=== PATIENT | male | born 1985 | race Caucasian/White ===

== ENCOUNTER 2016-09-20 16:00 | Inpatient (IN) | payer MEDICAID ==
--- NOTE | 2016-09-20 16:07 | EDPHY ---
H & P Source: Patient, Family, EMS HPI/ROS: CHIEF COMPLAINT: Fall, abnormal behavior. HISTORY OF PRESENT ILLNESS: This patient is a 31 year old male arriving via EMS following a fall and possible psychiatric episode. Per EMS crews, he was found at [facility], [place], covered in dirt and multiple abrasions, and running after people, behaving inappropriately. He states he left home yesterday, and initially states that he was staying at a friend's house, but later says he slept in his car. He states he was hiking "around 11 this morning" and fell 6-10 feet while crossing a boulder field. He does not know what may have happened to his clothing. He is oriented to person and place, but not time. He is concerned about hearing from [employer] regarding a potential job offer. He denies hearing voices or having visions. He denies suicidal or homicidal ideation. He feels he is dehydrated and states he has not been sleeping well. See [facility] for additional historical information. REVIEW OF SYSTEMS: A 10 point review of systems was performed and is negative with the exception of the elements mentioned in the history of present illness. (Melina Henry) - Medical/Surgical History PMH: Patient denies past medical history. His mother tells me that he has a history of a previous psychiatric hospitalization about 3 years ago. (Melina Henry) - Social History Additional Social History: Lives with his mother. (Melina Henry) - Physical Exam Exam: General Appearance: Alert, no acute distress. Initial blood pressure 158/100, heart rate 115 at triage. Cervical collar in place at arrival. Head: Normocephalic, small swelling with overlying abrasion anterior frontal scalp. No palpable skull deformity. Eyes: Pupils equal and round, [place] NENA. no conjunctival injection, no discharge. ENT, Mouth: Mucous membranes are dry, no oropharyngeal erythema or edema. Neck: No lymphadenopathy, supple. Respiratory: Lungs are clear to auscultation; no wheezes, rales, or rhonchi. Cardiovascular: Regular rate and rhythm; no murmur, rub, or gallop. Gastrointestinal: Abdomen is soft and non tender, no masses or organomegaly, bowel sounds normal. Bilateral abrasions at the level of the umbilicus. Skin: Warm and dry, no rashes, normal color. Back: Nontender to palpation over the thoracolumbar spine. Extremities: No lower extremity edema, no calf tenderness or swelling. Linear abrasion posterior right arm. Abrasion over left hip. Abrasion on the posterior right shoulder. Scattered abrasions over legs and feet. Neurological: Alert and oriented. Moving all four extremities easily and equally. Psychiatric: Somewhat pressured speech. (Melina Henry) Constitutional: Initial Vital Signs Temperature (C) 37.1 C 09/20/16 16:07 Heart Rate 115 H 09/20/16 16:07 Respiratory Rate 14 09/20/16 16:07 Blood Pressure 158/100 H 09/20/16 16:07 O2 Delivery Mode Room Air Allergies/Adverse Reactions: No Known Allergies Allergy (Unverified 09/20/16 17:32) Medical Decision Making - Diagnostics Imaging: Discussed imaging studies w/ will call clerk Radiologist - Diagnostics Imaging Results: Head CT reviewed by me in PACs. No acute findings. I discussed the study with the radiologist on duty. Cervical spine CT shows a central disc herniation at C4-5. No acute fracture or other acute abnormalities noted. Discussed with radiologist on duty. Right forearm x-ray negative for fracture. I reviewed this x-ray in PACs. ( Melina Henry) ED Course/Re-evaluation: 6:00 a.m.- The patient has been stable during my shift. Labs have been checked and he does have an elevated CK level. However, I doubt he is in rhabdomyolysis. He feels well, denies any muscle pains, aches, weakness. He is able to drink fluids without any difficulty. His creatinine has decreased from 2.1-1.4. He is medically clear. He is currently being evaluated by psychiatry. His disposition is pending their evaluation. At 7:00 a.m. I anticipate the case will be signed out [facility]. (Chapis Gaming) 16:[address] Mckenzie, radiologist. CT head negative for acute processes. 17:00 Reassessed. Mother and stepfather at bedside. His mother reports he has a history of schizoaffective disorder, and had been missing since yesterday around 4:30 p.m.. Yesterday, he became very irrational and argumentative, pacing around and stating he had not been able to sleep since Saturday. He was hospitalized 3.5 years ago in [place] for what is mother describes as a delusional episode following several days without eating or sleeping while studying at [employer]. At that time, he became suicidal and broke his glasses in an attempt to slit his wrists. He was medicated at that time, and his symptoms resolved. He was discharged on Seroquel, which he took for only a short time. He has not been taking any medications or seeing a psychiatrist since then, and has had no further episodes. The patient states he felt the medication had a negative effect on him overall, and he did not wish to continue them. 17:05 Reexamined neck, removed c-collar. Re-examined abdomen. Soft and nontender. 17:20 Patient placed on M1 hold. 17:44 Forearm x-ray negative for fracture. 19:37 Patient became very agitated and combative, and attempted to run from the facility. He was restrained by guards, and continued to scream obscenities and fight, stating " get off me now or else, remember last time?". He stated he wanted to negotiate, but only outside. He continued to yell at staff, saying "they stole your brain", and "I want to help you." Administered 10mg Haldol and 2mg Ativan. 19:40 Patient returned to his room and placed in restraints. 1941 I spoke with the patient's mother, apprised her of the fact that he had been sedated. She understands that this will delay his mental health evaluation. 2024 Restraints removed. 2300 Patient has been sleeping. Midnight: care will be transferred to Dr. Gaming. It is my impression that this patient's presentation is most consistent with a psychotic break. Given his previous psychiatric hospitalization, I think that this impression is most likely explanation for his abnormal behavior. Drug screen is positive only for marijuana. He has no known history of substance abuse. He is not intoxicated. No electrolyte or blood sugar abnormalities sufficient to explain his abnormal behavior. I have not found evidence of infection. I have not found evidence of traumatic injury sufficient to cause an altered mental status or delirium. His head CT is normal. He was not hyperthermic at the time of his arrival in the emergency department. He does have elevated creatinine kinase, at over 1000. Kidney function abnormal with a creatinine of 2.1 on arrival. I suspect dehydration and rhabdomyolysis. He received 2 L of normal saline intravenously during his initial stay in the emergency department. A third L was planned, but this plan was aborted when the patient became combative and pulled his IV out. He was then sedated, as above. He will need to have labs repeated. (Melina Henry) Differential Diagnosis: I considered a differential diagnosis of Altered mental status including but not limited to psychiatric illness with psychosis/paranoia/steffany/hallucinations , hypoglycemia, infectious process, electrolyte abnormality, head injury and intoxicants. (Melina Henry) Other Provider: I assumed care of the patient at 0700. The patient continued to escalate in the emergency department. He received a dose of Zyprexa. At this point time with the patient's rhabdomyolysis he is not medically cleared for placement into a crisis stabilization unit. He will require admission to the hospital for stabilization of his rhabdomyolysis. Consultation is made with the hospitalist service at 11:20 a.m.. The patient received an additional 1 L of normal saline. (Jacek Hazel) - Data Points Laboratory Results: Laboratory Results 09/21/16 04:05 09/20/16 20:55 09/21/16 09/21/16 04:05 04:05 WBC 15.97 10^3/uL H 10^3/uL (3.80-9.50) RBC 4.43 10^6/uL 10^6/uL (4.40-6.38) Hgb 13.5 g/dL L g/dL (13.7-17.5) Hct 40.6 % % (40.0-51.0) MCV 91.6 fL fL (81.5-99.8) MCH 30.5 pg pg (27.9-34.1) MCHC 33.3 g/dL g/dL (32.4-36.7) RDW 13.1 % % (11.5-15.2) Plt Count 188 10^3/uL 10^3/uL (150-400) MPV 9.7 fL fL (8.7-11.7) Neut % (Auto) 76.8 % H % (39.3-74.2) Lymph % (Auto) 13.0 % L % (15.0-45.0) Dent % (Auto) 9.1 % % (4.5-13.0) Eos % (Auto) 0.1 % L % (0.6-7.6) Baso % (Auto) 0.3 % % (0.3-1.7) Nucleat RBC Rel Count 0.0 % % (0.0-0.2) Absolute Neuts (auto) 12.27 10^3/uL H 10^3/uL (1.70-6.50) Absolute Lymphs (auto) 2.08 10^3/uL 10^3/uL (1.00-3.00) Absolute Monos (auto) 1.46 10^3/uL H 10^3/uL (0.30-0.80) Absolute Eos (auto) 0.01 10^3/uL L 10^3/uL (0.03-0.40) Absolute Basos (auto) 0.04 10^3/uL 10^3/uL (0.02-0.10) Absolute Nucleated RBC 0.00 10^3/uL 10^3/uL (0-0.01) Immature Gran % 0.7 % % (0.0-1.1) Immature Gran # 0.11 10^3/uL H 10^3/uL (0.00-0.10) Creatine Kinase 4599 IU/L H IU/L (0-224) CK-MB (CK-2) Fraction 4.12 ng/mL H ng/mL (0-3.19) CK-MB (CK-2) % 0.1 % % (0.0-4.0) Creatine Kinase Interp NEGATIVE (NEGATIVE) Medications Given: Discontinued Medications Haloperidol Lactate (Haldol Injection) 10 mg IM EDNOW ONE Stop: 09/20/16 19:41 Last Admin: 09/20/16 19:40 Dose: 10 mg Sodium Chloride (Ns) 1,000 mls @ 0 mls/hr IV EDNOW ONE; Wide Open PRN Reason: Protocol Stop: 09/20/16 16:41 Last Admin: 09/20/16 16:45 Dose: 1,000 mls Sodium Chloride (Ns) 1,000 mls @ 0 mls/hr IV ONCE ONE PRN Reason: Wide Open Stop: 09/20/16 17:01 Last Admin: 09/20/16 17:00 Dose: 1,000 mls Sodium Chloride (Ns) 1,000 mls @ 0 mls/hr IV ONCE ONE; Wide Open PRN Reason: Protocol Stop: 09/20/16 20:02 Last Admin: 09/20/16 20:00 Dose: 1,000 mls Sodium Chloride (Ns) 1,000 mls @ 0 mls/hr IV EDNOW ONE; Wide Open PRN Reason: Protocol Stop: 09/21/16 11:08 Last Admin: 09/21/16 11:13 Dose: 1,000 mls Lorazepam (Ativan Injection) 2 mg IM EDNOW ONE Stop: 09/20/16 20:04 Last Admin: 09/20/16 19:40 Dose: 2 mg Olanzapine (Olanzapine) 10 mg PO ONCE ONE Stop: 09/21/16 10:20 Last Admin: 09/21/16 10:41 Dose: 10 mg Departure - [facility] Clinical Impression: Psychosis, Rhabdomyolysis Condition: Fair Referrals: Patient,NotPresent [Unknown] - As per Instructions Report Scribed for: Melina Henry Report Scribed by: Suzan Moya Date of Report: 09/20/16 Time of Report: 17:24 Physician Review and Approval Statement: 09/21/16 09:02 Portions of this note were transcribed by the medical receptionist medical assistant. I, Dr. Melina Henry, personally performed the history, physical exam, and medical decision- making; and confirmed the accuracy of the information in the transcribed note. ( Melina Henry)
[2016-09-20 16:16] LABS: % IMMATURE GRANULYOCYTES 0.8 % (0.0-1.1); ABSOLUTE IMMATURE GRANULOCYTES 0.17 10^3/uL (0.00-0.10); ADD DIFF? NO; ADD MORPH? NO; ADD SCAN? NO; ATYPICAL LYMPHOCYTE FLAG 0 (0-99); FRAGMENT RBC FLAG 0 (0-99); HEMATOCRIT 45.5 % (40.0-51.0); HEMOGLOBIN 15.4 g/dL (13.7-17.5); LEFT SHIFT FLG 20 (0-99); LIPEMIA HEMOLYSIS FLAG 90 (0-99); MEAN CELL HEMOGLOBIN CONCENTR. 33.8 g/dL (32.4-36.7); MEAN CELL VOLUME 91.7 fL (81.5-99.8); MEAN PLATELET VOLUME 10.1 fL (8.7-11.7); PLATELET CLUMPS FLAG 20 (0-99); PLATELET COUNT 219 10^3/uL (150-400); RED BLOOD CELL COUNT 4.96 10^6/uL (4.40-6.38); RED CELL DISTRIBUTION WIDTH 13.1 % (11.5-15.2)
[2016-09-20 16:32] LABS: ANION GAP 21 mEq/L (8-16); CALCIUM 9.8 mg/dL (8.5-10.4); CARBON DIOXIDE 15 mEq/l (22-31); CHLORIDE 108 mEq/L (97-110); CREATININE 2.1 mg/dL (0.7-1.3); ETHANOL SERUM < 10 mg/dL (0-10); GLOMERULAR FILTRATION RATE 38; GLUCOSE 140 mg/dL (70-100); POTASSIUM 4.5 mEq/L (3.5-5.2); SODIUM 144 mEq/L (134-144)
[2016-09-20] MEDS ORDERED: NS 1,000 ML IV ONE ×3 (16:40→20:01)
[2016-09-20 18:47] LABS: CK-MB INTERPRETATION NEGATIVE (NEGATIVE)
[2016-09-20 18:49] LABS: CREATINE KINASE-MB FRACTION 3.69 ng/mL (0-3.19)
[2016-09-20] MEDS ORDERED: LORazepam 2 MG/ML INJ ONE (19:36)
[2016-09-20] MEDS ORDERED: HALOPERIDOL LACT 5 MG/ML INJ ONE (19:37)
[2016-09-20] MEDS ORDERED: HALOPERIDOL LACT 5 MG/ML INJ IM ONE (19:40)
[2016-09-20] MEDS ORDERED: LORazepam 2 MG/ML INJ IM ONE (20:03)
[2016-09-20 21:15] LABS: ANION GAP 14 mEq/L (8-16); CALCIUM 8.3 mg/dL (8.5-10.4); CARBON DIOXIDE 16 mEq/l (22-31); CHLORIDE 107 mEq/L (97-110); CREATININE 1.4 mg/dL (0.7-1.3); GLOMERULAR FILTRATION RATE 60; GLUCOSE 104 mg/dL (70-100); POTASSIUM 4.1 mEq/L (3.5-5.2); SODIUM 137 mEq/L (134-144)
[2016-09-21 04:15] LABS: % IMMATURE GRANULYOCYTES 0.7 % (0.0-1.1); ABSOLUTE IMMATURE GRANULOCYTES 0.11 10^3/uL (0.00-0.10); ADD DIFF? NO; ADD MORPH? NO; ADD SCAN? NO; ATYPICAL LYMPHOCYTE FLAG 0 (0-99); FRAGMENT RBC FLAG 0 (0-99); HEMATOCRIT 40.6 % (40.0-51.0); HEMOGLOBIN 13.5 g/dL (13.7-17.5); LEFT SHIFT FLG 10 (0-99); LIPEMIA HEMOLYSIS FLAG 80 (0-99); MEAN CELL HEMOGLOBIN 30.5 pg (27.9-34.1); MEAN CELL HEMOGLOBIN CONCENTR. 33.3 g/dL (32.4-36.7); MEAN CELL VOLUME 91.6 fL (81.5-99.8); MEAN PLATELET VOLUME 9.7 fL (8.7-11.7); PLATELET CLUMPS FLAG 0 (0-99); PLATELET COUNT 188 10^3/uL (150-400); RED BLOOD CELL COUNT 4.43 10^6/uL (4.40-6.38); RED CELL DISTRIBUTION WIDTH 13.1 % (11.5-15.2)
[2016-09-21 05:03] LABS: CK-MB INTERPRETATION NEGATIVE (NEGATIVE)
[2016-09-21 05:04] LABS: CREATINE KINASE-MB FRACTION 4.12 ng/mL (0-3.19)
[2016-09-21] MEDS ORDERED: OLANZapine 10 MG TAB PO ONE (10:19)
[2016-09-21] MEDS ORDERED: NS 1,000 ML IV ONE (11:07)
[2016-09-21] MEDS ORDERED: ACETAMINOPHEN 325 MG TAB PO PRN (11:49)
[2016-09-21] MEDS ORDERED: ONDANSETRON 4 MG/2 ML VIAL IVP PRN (11:49)
[2016-09-21] MEDS ORDERED: ONDANSETRON DISINTEGRATING 4 MG TAB PO PRN (11:49)
--- NOTE | 2016-09-21 15:10 | GHP ---
[f rep st] HISTORY AND PHYSICAL DATE OF ADMISSION: 09/21/2016 CHIEF COMPLAINT: Unusual behavior. HISTORY OF PRESENT ILLNESS: A 31-year-old male who was found hiking naked around [place], inappr opriately approaching strangers with strange comments and bizarre suggestions. Patient was covered in dirt. Police were called, and he was brought to the emergency department for evaluation. In the ED, his mother was present and able to answer questions about recent time. Reports he was in his n ormal state of health approximately a week ago when his behavior became more confrontational daily i n the past week. She had not noticed any aggressive behavior from him. Denied any reported physica l complaints from him. He had been eating and drinking normally. The patient denies any chest pain , shortness of breath, and abdominal discomfort. Denies diarrhea, dysuria, rashes, and subjective f angeli or chills. Patient became very aggressive in the emergency department and was physically rest rained by police officers and placed on M1 hold. PAST MEDICAL HISTORY: Psychiatric illness; no specific diagnosis provided. SOCIAL HISTORY: Daily alcohol use/abuse. Daily marijuana use. No tobacco or illicit drugs. FAMILY HISTORY: Negative for any known psychiatric illness. Depression in his father who is now tr ansgender. REVIEW OF SYSTEMS: A 10-point review of systems is negative with the exception of that reported in the HPI. PHYSICAL EXAMINATION: VITAL SIGNS: Blood pressure 147/96, heart rate 100, respiratory rate 16, 98% on room air of 36 4. GENERAL: This is a disheveled-appearing, young male in mild distress. HEENT : Notable for dry mucous membranes. Eye exam is negative for any icterus. CARDIAC: Patient is ta chycardic but regular. PULMONARY: Good respiratory effort. Clear to auscultation bilaterally. GAS TROINTESTINAL: Positive bowel sounds. Abdomen is soft and nontender. MUSCULOSKELETAL: Negative f or any lower extremity edema. SKIN: Negative for any rashes. NEUROLOGIC: Patient is alert and diso riented. PSYCHIATRIC: Aggressive and agitated. DATA: White count is 15.9, hematocrit 40.6, platelets of 188. Sodium 137, creatinine 2.1 to 1.4. CK of 1000 up to 4600. Urine tox is positive for marijuana. CT of the head, which I personally rev iewed and interpreted, shows no acute trauma or bleeds. ASSESSMENT AND PLAN: This is a 31-year-old male with acute psychosis. 1. Acute kidney injury: Presumed secondary to hypovolemia and dehydration. The patient had not be en seen by his mother for a couple days prior to being found on [place]. Has had some improvemen t in his renal function with fluid resuscitation alone, but will continue aggressive IV fluid replet ion, following urine outputs and creatinines. 2. Acute psychosis: Patient apparently had a similar episode, though less extreme, approximately 3 years ago. Was not given a specific diagnosis at the time or initiated on any pharmacotherapy. Pe r the mother's report, with whom he lives, has been stable in the interim. She reports that they we nt and saw Hair at the dinner theater in [place], and since seeing that he has been acting strangely, including acting out scenes from the play. Patient was evaluated by EPS. Will use Haldol and Ativ an as needed for agitation and acute psychosis. The intention will be to transfer to inpatient 3 No rth when the patient is medically clear. 3. Prophylaxis: With Lovenox. DIET: Regular. DISPOSITION: I expect in less than 2 midnights if patient responds appropriately to fluid resuscita tion. I have discussed the case with the emergency room physician. Patient will be triaged to the ICU on an M1 hold. /[id number]/MODL
[2016-09-21 16:43] LABS: ANION GAP 12 mEq/L (8-16); CALCIUM 8.5 mg/dL (8.5-10.4); CARBON DIOXIDE 17 mEq/l (22-31); CHLORIDE 109 mEq/L (97-110); CREATININE 0.7 mg/dL (0.7-1.3); GLOMERULAR FILTRATION RATE > 60; GLUCOSE 66 mg/dL (70-100); POTASSIUM 3.9 mEq/L (3.5-5.2); SODIUM 138 mEq/L (134-144)
[2016-09-21] MEDS ORDERED: HALOPERIDOL LACT 5 MG/ML INJ IVP PRN (19:27)
[2016-09-21] MEDS ORDERED: OLANZapine DISINTEGR 5 MG TAB PO PRN (19:28)
[2016-09-21 19:40] LABS: CREATINE KINASE-MB FRACTION 3.33 ng/mL (0-3.19)
[2016-09-21] MEDS: NS 1,000 ML IV SCH (20:12)
[2016-09-21 20:48] LABS: CK-MB INTERPRETATION NEGATIVE (NEGATIVE)
[2016-09-22 04:08] VITALS: TEMP 98.2
[2016-09-22] MEDS: NS 1,000 ML IV SCH (04:08)
[2016-09-22 07:57] VITALS: RESP 14
[2016-09-22] MEDS ORDERED: ENOXAPARIN 40 MG/0.4 ML SYR SC SCH (09:00)
[2016-09-22 21:10] VITALS: BP 138/76; PULSE 96; O2SAT 96
--- NOTE | 2016-09-23 11:40 | GDS ---
[f rep st] DISCHARGE SUMMARY DISCHARGE DIAGNOSES: 1. Acute psychosis, suspected schizophrenia. 2. Acute kidney injury secondary to hypovolemia. 3. Polysubstance abuse. HISTORY OF PRESENT ILLNESS: A 31-year-old male who was [place] approaching strangers with strange comments and suggestions. For details of the patient's initial presentation, please see the history and physical dated 017. CONSULTATIVE SERVICES: Psychiatry. PROCEDURES: On 09/20/2016, the patient had a noncontrast CT of the head, which was normal. HOSPITAL COURSE BY ISSUE: 1. Acute psychosis. The patient was combative, unsafe to himself and others at presentation in the ED. He was placed on an M1 hold, treated with Haldol and Ativan, and [facility]. 2. Acute kidney injury presumed secondary to hypovolemia and dehydration. The patient was aggressi vely fluid resuscitated and had resolution of his kidney injury from a creatinine of 2.1-0.7 on the day of disposition. 3. Polysubstance abuse. The patient drinks alcohol heavily and consumes high levels of marijuana. This will additionally be addressed by his psychiatric care team going forward. MEDICATIONS AT THE TIME OF DISPOSITION: Please reference the med rec printed on 09/22/2016. FOLLOWUP APPOINTMENTS: The patient will be admitted directly for inpatient psychiatric care at [address] [place] [address]. PENDING STUDIES: None. TIME SPENT: I spent greater than 30 minutes in the coordination of this discharge with the intensiv e care unit and psychiatric care providers. /[id number]/MODL
== END 2016-09-22 23:31 | DRG 885 ==
LOC: EEVIPCON 09-21 11:23 → OBSVTOIN 09-21 11:49 → F2N 09-21 12:52
PROVIDERS: ADMIT Hospitalist; ATTEND Hospitalist
DX: F20.9 Schizophrenia, unspecified (principal); N17.9 Acute kidney failure, unspecified; E86.1 Hypovolemia; F12.10 Cannabis abuse, uncomplicated; F10.10 Alcohol abuse, uncomplicated; E86.0 Dehydration; W19.XXXA Unspecified fall, initial encounter; Y93.01 Activity, walking, marching and hiking
CPT/HCPCS: 80305; G0480; J2060

== ENCOUNTER 2016-09-22 23:49 | Inpatient (IN) | payer MEDICAID ==
[2016-09-23] MEDS ORDERED: OLANZapine DISINTEGR 5 MG TAB PO PRN (00:13)
[2016-09-23] MEDS ORDERED: NICOTINE POLACRILEX 2 MG GUM B PRN (00:14)
[2016-09-23] MEDS ORDERED: MAGNESIUM HYDROXIDE 30 ML UDCUP PO PRN (00:14)
[2016-09-23] MEDS ORDERED: ACETAMINOPHEN 325 MG TAB PO PRN (00:14)
[2016-09-23] MEDS ORDERED: MAG HYDROX/AL HYDROX/SIMETH 30 ML UDCUP PO PRN (00:14)
[2016-09-23] MEDS: LORazepam 0.5 MG TAB PO PRN (01:36)
--- NOTE | 2016-09-23 15:10 | BCON ---
[f rep st] BEHAVIORAL [facility] CONSULTATION INTERNAL MEDICINE CONSULTATION. DATE OF CONSULTATION: 09/23/2016 REFERRING PHYSICIAN: Javy Kilgore MD REASON FOR REFERRAL: Medical clearance for inpatient [facility] stay. HISTORY OF PRESENT ILLNESS: The patient was admitted to the [facility] Emergency Department on 09/21/2016. He had been found by police wandering naked [place] [facility] covered in dirt and scrapes. He was brought to the emergency department and was hospitalized with altered mental status as well as acute renal insufficiency and rhabdomyolysis. He was hydrated. His renal function returned to normal. His CPK, indicating rhabdomyolysis, peaked and then began to come down and he was stable for transfer to inpatient [facility] for further psychiatric care. He is currently without any acute complaints. He reports that he had a good night sleep last night and he feels that his mind is much clearer. PAST MEDICAL HISTORY: He denies a history of any medical illnesses. He had a prior psychiatric hospitalization approximately 3-1/2 years ago in similar circumstances, but has not had continued psychiatric care. PAST SURGICAL HISTORY: He had a right ankle fracture with an ORIF when he was 20. MEDICATIONS: He was on no medications prior to admission. ALLERGIES: allergic to Sulfa drugs. SOCIAL HISTORY: He lives with his mother at present. 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 He does not smoke tobacco. He is a regular alcohol user and a regular marijuana user. FAMILY HISTORY: Noncontributory. REVIEW OF SYSTEMS: He reports that he abruptly ceased drinking alcohol several days before recent events. He currently denies pain, cough, dyspnea, chest pain , palpitations, nausea, vomiting, constipation, or diarrhea. He reports no change in his bowel habits. He reports no recent weight change, though he has adopted a vegetarian diet for several weeks. He denies sweats or chills. He denies a tremor and otherwise a 10-point review of systems is negative. PHYSICAL EXAMINATION: VITAL SIGNS: Blood pressure is 112/62, heart rate is 70 , respiratory rate is 14, oxygen saturation is 96% on room air. Temperature is 36.7 degrees centigrade. His weight is 90.3 kg for a body mass index of 27.8. GENERAL: This is an overweight man, appears his chronologic age, cooperative, and in no acute distress. HEENT: Extraocular movements are intact. Pupils are equal, round, and reactive to light. Mucous membranes are moist. Dentition is in good condition. He has an uncrowded airway, Mallampati class 1. NECK: Supple. HEART: There is a regular rate and rhythm with no murmurs, rubs, or gallops. LUNGS: Clear to auscultation bilaterally. ABDOMEN: Soft, nontender, nondistended with normoactive bowel sounds. EXTREMITIES: There is no cyanosis , clubbing, or edema. NEUROLOGIC: He is alert and oriented x3. Cranial nerves 2 through 12 are grossly intact. There is no focal weakness. Sensation is intact to light touch and gait is within normal limits. LABORATORY STUDIES: From his hospitalization, regarding hematology his white blood cell count has declined from 21.23 on the to 15.97 on the . There was no left shift and otherwise CBC was overall within normal limits. Serum chemistry: His creatinine when he first came in on 09/20/2016 was 2.1 and on 07/22/2016 it had improved to normal 0.7. His anion gap resolved. He had a slightly low carbon dioxide at 17. Creatine kinase was 1067 when he first came in, peaked at 4599 and then improved to 4179 and otherwise renal function and electrolytes were within normal limits. Toxicology screen in the serum was negative for ethyl alcohol. Toxicology screen in the urine was non- negative for marijuana and was otherwise negative for substances of abuse. ASSESSMENT/RECOMMENDATIONS: 1. Mental health issues. Pending further evaluation and management per Psychiatry and the mental health team. 2. Rhabdomyolysis is resolving and there is no need for further testing. 3. Alcohol abuse and dependence. He shows no signs or symptoms of alcohol withdrawal at present. Query whether acute alcohol withdrawal contributed to his psychosis. He would likely benefit from substance abuse counseling. I see no medical contraindications to the patient's continued stay on the inpatient behavioral health unit or to any psychiatric medications or procedures. Thank you very much for including me in the care of the patient. Please do not hesitate to contact me or the hospitalist service should there be a need for further medical evaluation. /[id number]/MODL MTDD
--- NOTE | 2016-09-23 16:10 | BAPA ---
[f rep st] BEHAVIORAL HEALTH HISTORY AND PHYSICAL Corrected report DATE OF ADMISSION: 09/22/2016 CHIEF COMPLAINT: "I tried quitting drinking and I lost it for a while." HISTORY OF PRESENT ILLNESS: Patient is a 31-year-old white male who presented to the emergency department via EMS on an M1 hold due to psychosis and later taken to the ICU due to rhabdomyolysis and acute renal failure. According to EMS crews and M1 hold, the patient was found in [facility], covered in dirt, and had multiple abrasions. The patient had been reported to have been running after people and behaving inappropriately. The patient told EMS crews that he had left home yesterday and initially stated he was staying at a friend' s house but later states he slept in his car. Patient reported that he was hiking around 11:00 a.m. on 09/21/2016 and fell 6-10 feet while crossing a boulder field. He does not know what happened to his clothing. Patient is oriented to person and place but not time. Patient reported that he is concerned about hearing about a potential job. He denies hearing voices or having visions. Patient denies SI, HI. States that he feels dehydrated and has not been sleeping well. Patient's family reported that he had been behaving oddly since the beginning of the week for a few days prior to the incident. According to his mother, he took his brother's dog for a walk and was gone for several hours without his cellphone. His brother eventually found him 7 miles from the patient's home. The patient's mother said on the evening of 09/19, the family went to a dinner theater and saw the musical Hair, after which the patient became agitated and what she described as grandiose. Patient' s mother observed that the patient was over identifying with the characters in the play "Its like he became one of the characters, he was doing the same things with Abel Muñiz. He was reading Muñiz's books and its as though he thinks he is Muñiz." She says that patient was unable to sleep for 2 consecutive nights on 09/19 and 09/20. Patient had to be restrained in the emergency department and given 2 mg Haldol IM and Ativan 10 mg because he was agitated and uncooperative and trying to leave the emergency department. Upon evaluation by this MD and on the psychiatric unit on 09/23/2016, patient is much more clear, coherent, organized and lucid than upon presentation to the ED, most likely due to the clearing of his rhabdo and improving renal function and his improved mental status. Patient states that "I've had the ambition to clean up my life, work my way up to quitting drinking but plans didn't work out right." Patient states that he thinks that the reason that he presented with altered mental status and bizarre behavior was due to a combination of decreased alcohol consumption and dehydration. Patient states that he typically drinks greater than 4 beers daily and binge drinks at least once a week where he will have greater than 8 to 10 mixed drinks and 3 to 4 beers. He states that he began cutting back on Saturday the and states that he had "a couple glasses of wine" on 09/18/2016 and 09/19/2016. States that his last drink was "at a bar in [place]" on 09/20/2016 prior to starting his hike. PAST PSYCHIATRIC HISTORY: Patient states that he had a very similar experience as his current episode when he was at [facility] in [place] in 2011. He says he had "identical symptoms." He says that he had quit drinking "cold turkey" after consuming alcohol on a daily basis and binge drinking while in college and states that he was admitted to [facility] under similar circumstances to this admission. He states he was disoriented and confused at that time. It sounds like he was also paranoid. Patient states that "I thought they were going to torture me" while he was in the hospital. He said he was also at that time dehydrated and delusional and he had been combative and agitated in the emergency department in [place] and was also given p.o. medication, Zyprexa , at that time prior to being admitted to [facility]. During the TLC consultation, mother reported that patient did have a similar episode and was admitted to [facility] about 3-1/2 years ago. She stated that he was prescribed Risperdal and discharged after the M1 hold but did not follow through with outpatient treatment. She said he has not needed psychiatric treatment until this episode occurred. Mother states that patient does not have a therapist or a psychiatrist and has not been on any psychiatric medication since his treatment at [facility] in approximately 2011. ALLERGIES: Patient has an allergy to sulfa medications. CURRENT MEDICATIONS: None. PAST MEDICAL HISTORY: Noncontributory except for recent onset of rhabdomyolysis and spent 2 days in the ICU at [facility]. Was treated for acute renal failure, likely due to a combination of dehydration and physical exertion during a hike in [place] on 09/20/2016. SOCIAL HISTORY: Patient has been living with his parents in [place] since he graduated from [employer] [facility]. 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 He indicated he left because he felt very close to a colleague who suddenly seemed too distant and it was painful for the patient to be in the same work environment. SUBSTANCE USE HISTORY: Patient reports that he experimented with shrooms as a teenager but that his main drug use has been alcohol and marijuana. He started drinking excessively in college. Was a binge drinker on the weekends but would drink at least 3 to 4 times a week. He said that his most recent use has been greater than 4 beers daily and at least once a week binge drinking where he reports having greater than 8 mixed drinks and "several beers." He states that he would like to drink less but says that he is not interested in stopping completely. He said that he would like to drink "about half as much" as he does now. Patient reports that he smokes leaf cannabis as well as vaping concentrate. He says he purchases about 2 to 3 grams of leaf marijuana a week. Says that he has been smoking daily for about 10 years. He denies any other drug use. FAMILY HISTORY: Mother reports that patient's 20-year-old brother has been treated with medication for OCD for the past several years but patient denies any other family history of mental illness. ADMISSION LABS: Most recent labs were from the emergency department on 09/21 when patient was admitted to the ICU for rhabdomyolysis. He had a white cell count of 15.97, his hemoglobin was 13.5, hematocrit was 40.6. His neutrophil count was 12.27. His sodium was 138, potassium was 3.9. His BUN was 9, his creatinine was 0.7. His creatine kinase was 4179 and he also had elevated CK- MB. His urine tox screen was positive for THC, negative for all other substances. Blood alcohol level was less than 10. MENTAL STATUS EXAMINATION: Patient presents as pleasant, cooperative, polite. He is wearing street clothes, T-shirt and jeans. He interacts appropriately. He is alert and oriented x4. His affect is bright. His mood he says is "good. " Thought process is linear and goal directed. Thought content reveals no evidence of psychosis. He denies auditory and visual hallucinations. He also denies thoughts, plans or intent to harm himself or anyone else. His insight and judgment appear fair. His intellect appears to be normal as evidenced by vocabulary and grammar. LEGAL HISTORY: Patient denies any prior legal problems. IMPRESSION: This is a 31-year-old white male who seemed to be experiencing acute onset of altered mental status and delirium secondary to rhabdomyolysis and acute renal failure brought on by a combination of dehydration and extreme physical exertion on 09/20/2016. Due to his presentation in the emergency department, he was admitted to inpatient psychiatry on a mental health hold; however, on his initial evaluation he does not show any signs of altered mental status or delirium. He is not delusional, agitated, or combative. He denies any auditory and visual hallucinations and he shows no evidence of psychosis. He denies any mood related symptoms including no depression, no anxiety, and denies any thoughts, plans, or intent to harm himself or hurt anyone else. He does have a prior history of a similar episode related to abrupt cessation of alcohol use and he does meet criteria for an alcohol use disorder and admits that he has been trying to cut back over the course of this week which may be responsible for some of the odd and bizarre behavior that he demonstrated prior to his ED visit as reported by the family; therefore, I would diagnose this patient with alcohol use disorder, severe but patient has not had anything to drink for greater than 72 hours and is currently showing no signs or symptoms of withdrawal. His vital signs are stable and he denies any physical symptoms of alcohol withdrawal at this time. Patient also meets criteria for cannabis use disorder, severe, and he is experiencing problems with interpersonal relationships. He is unemployed, recently left his job. He does have support from his family but his mom describes him as "isolated" and "a loner." PLAN: 1. Admit patient to behavioral health services inpatient unit on an M1 hold. 2. Monitor closely for safety and suicide precautions. 3. Will start patient on CIWA with no medications as he is denying any signs or symptoms of withdrawal but will just monitor him for 24 hours. His vital signs are currently stable. 4. Will discontinue any antipsychotic medication as patient is showing no evidence of psychosis at the current time. His symptoms upon presentation to the ED are all consistent with an acute delirium brought on by rhabdomyolysis and acute renal failure. 5. Will engage in individual and group milieu psychotherapies and continue to interview the patient and obtain more clinical information if relevant from previous hospitalization and from family as necessary. 6. MD has recommended to the patient that he seek outpatient substance use treatment and has given him referrals for chemical dependency, IOP or one-on- one therapy with a certified addictions counselor. 7. Estimated length of stay is 1 to 2 days. I have encouraged patient to arrange followup care with IOP or with a private certified addictions counselor and he states that he would be happy to do that prior to discharge. He will convert his status to voluntary and likely discharge on 09/24/2016. /[id number]/MODL Kinjal worktype, 09/24/16, romina BUNCH
[2016-09-23] MEDS ORDERED: BACITRACIN OINTMENT 1 PACKET TP ONE (17:33)
[2016-09-24] MEDS: LORazepam 0.5 MG TAB PO PRN ×2 (11:24→17:37)
--- NOTE | 2016-09-24 14:22 | SOAPPROG ---
SOAP Progress Note Assessment/Plan: Assessment: 31 yo admitted d/t delirium secondary to ARF post rhabdomyolysis. Was admitted to ICU x 1 day and admitted to inpatient psych. He was thought to be psychotic in ED, but was more likely delirium. Upon arrival to psych unit, his delirium had cleared, he was lucid, oriented and did not demonstrate any s/s of psychosis or mood related problems. He denied any SI/HI. 09/24/16 14:16 Plan: 1. Patient shows no evidence of psychosis and does not endorse depression, anxiety or mood related problems. He has no SI/HI. Do not recommend any medication treatment. But have suggested therapy and chemical dependency counseling, since patient identifies alcohol and THC as problems and he'd like to "cut back" and have a "healthier lifestyle." 2. CC to arrange f/u appointments. 3. Likely D/C tomorrow. 4. Patient has been scoring 0 on CIWA. He has elevated BP and reports he was diagnosed with HTN in past, but was not treated for it. He does not have a PCP now and would like to get one. MD has encouraged him to have BP monitored and treated by PCP if needed. Will d/c CIWA. Subjective: Patient presents calm, polite, cooperative. He denies any sxs of ETOH w/d. His BP was seriously elevated. MD requested RN to give PRN Ativan and recheck BP. Patient wants a referral for PCP, and MD recommend he have BP monitored and treated if necessary. Patient denies any AH/VH, SI/HI. Objective: Vital Signs Temp Pulse Resp BP Pulse Ox 36.6 C 102 H 15 174/103 H 100 09/24/16 14:03 09/24/16 14:03 09/24/16 14:03 09/24/16 14:03 09/24/16 14:03 MSE: Pleasant, cooperative, polite. Affect: Cheerful Mood: 'Good" TP: Linear, goal-directed TC: Denies AH/VH, SI/HI Insight/judgment: Fair/Fair - Time Spent With Patient Time Spent With Patient: 25" - Pending Discharge Pending Discharge Within 24 Hours: Yes Pending Discharge Date: 09/25/16 Pending Discharge Time: 12:00 ICD10 Worksheet Patient Problems: Problems Problem Status Onset Alcohol use disorder, severe, dependence Acute Cannabis use disorder, severe, dependence Acute Rhabdomyolysis Acute - ICD10 Problem Qualifiers (1) Psychosis Qualifiers: Psychosis type: unspecified psychosis type Schizoaffective disorder type: S Schizophrenia type: S (2) Alcohol use disorder, severe, dependence (3) Cannabis use disorder, severe, dependence
[2016-09-25 06:28] VITALS: BP 156/96; PULSE 106; RESP 16; TEMP 97.9; O2SAT 99
--- NOTE | 2016-09-25 22:53 | BDS ---
[f rep st] BEHAVIORAL HEALTH DISCHARGE SUMMARY REASON FOR ADMISSION: This is a 31-year-old white male who presented to the Emergency Department on an M1 hold due to psychosis, and later taken to the ICU due to rhabdomyolysis and acute renal failu re. The patient's psychosis was secondary to delirium. The patient had been reported to have been running after people and behaving inappropriately. The patient reported he was hiking around 11 AM on 09/21/2016, and felt sick crossing a [place] field. Upon evaluation by on the psychiatric uni t on 09/23/2016, patient was much more clear, coherent, organized and lucid than upon presentation t o the ED most likely due to clearing of his delirium. The patient states, "I've had the ambition to clean up my life, work my way up to quitting drinking, but plans didn't work out right." The patie nt states that he thinks the reason that he presented with altered mental status and bizarre behavio r was due to a combination of decreased alcohol consumption and dehydration. ADMITTING DIAGNOSIS: 1. Delirium secondary to rhabdomyolysis and acute renal failure. 2. Alcohol use disorder severe. 3. Cannabis use disorder severe. 4. Rhabdomyolysis, resolved. 5. Acute renal failure, resolved. ADMISSION PHYSICAL EXAMINATION: Please see History and Physical performed by Dr. Vinny Robbins on 09/23/2016. ADMISSION LABS: The patient had an elevated white cell count of 15.97. His neutrophil count was el evated at 12.27. His BUN was 9. His creatinine was 7. His creatinine kinase was 4179. He also had an elevated CPK-MB indicative of rhabdomyolysis, for which he was admitted to the ICU. His urine t ox screen was positive for THC. Negative for all other substances. Blood alcohol level was less anai n 10. HOSPITAL COURSE: The patient was admitted to the inpatient psychiatric unit because of the psychoti c symptoms that he was exhibiting in the ED, which now appear to have been related to delirium secon lavon to a combination of alcohol withdrawal, dehydration, extreme physical exertion which brought on rhabdomyolysis, and acute renal failure. Once patient was hydrated and his physical conditions add ressed, his delirium cleared. During his time on the inpatient psych unit, he exhibited no signs or symptoms of psychosis. No altered mental status. He denied any symptoms of depression, anxiety or mood related problems. He also denied any suicidal or homicidal ideations. No thoughts, plans, or intents to hurt himself or anyone else. He was initially given antipsychotic medications while in the ED, but while he was on the inpatient unit, since he was not exhibiting any signs or symptoms of psychosis or any other severe mental illness, he was not prescribed any medications. He was placed on CIWA protocol. He scored 1 or less throughout the time that he was on the unit, though he did h ave elevated blood pressure and he was tachycardic. He was given p.r.n. clonidine as well as p.r.n. Ativan to address his vital signs. The patient stated that he had a prior history of hypertension which was untreated because he had always refused to be on medications, so he probably has an underl elliott hypertension which is exacerbated by alcohol withdrawal. He was recommended to follow up with primary care physician. CONDITION ON DISCHARGE: Patient was stable. His affect was euthymic. He reported his mood was goo d. He denied any signs or symptoms of psychosis and denied any SIHI. DISCHARGE MEDICATIONS: Patient was not discharged on any medications except his home medications wh ich is 1 multivitamin a day. DISCHARGE DIAGNOSIS: 1. Delirium secondary to rhabdomyolysis, resolved. 2. Alcohol dependence, severe, currently in early remission due to being in a [facility]. 3. Cannabis use disorder, severe. 4. Patient also has psychosocial issues including unemployment, financial problems, he is currently residing with his parents. DISPOSITION: Patient left the hospital with his family and was planning to go back to living at his parents house. They were going to supervise and monitor him. FOLLOWUP: Patient has followup appointments with [facility] in [place] on 09/26/2016, at 9:15 AM. He has also been referred to the Substance Use Disorder Program through [facility]. He was al so given a list of medicaid primary care providers to follow up for his hypertension. LEGAL COURSE: The patient was converted to voluntary status with the expiration of his M1 hold. /[id number]/MODL
== END 2016-09-25 13:00 | disposition home or self-care (01) | DRG 558 ==
LOC: BBEH 23:49
PROVIDERS: ADMIT Specialist; ATTEND Specialist
DX: M62.82 Rhabdomyolysis (principal); N17.9 Acute kidney failure, unspecified; E86.0 Dehydration; F10.20 Alcohol dependence, uncomplicated; F12.90 Cannabis use, unspecified, uncomplicated